=== PATIENT | female | born 1995 | race African-American/Black ===

== ENCOUNTER 2018-03-20 10:01 | Emergency (ER) | payer MEDICAID ==
[~2018-03-20] VITALS: Ht 160 cm; Wt 41.0 kg
[2018-03-20 10:09] VITALS: BP 125/78
[2018-03-20 11:06] LABS: ANION GAP 7 mmol/L (5-15); CHLORIDE 103 mmol/L (98-107); CREATININE 0.96 mg/dL (0.55-1.02)
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
--- NOTE | 2018-03-20 12:09 | NUR ---
Patient/Caregiver given discharge instructions and they have confirmed that they understand the instructions. Patient ambulatory to wheelchair. Dressing supplies given to family.
== END 2018-03-20 12:11 | disposition home or self-care (01) ==
LOC: ED 11:50
DX: K59.00 Constipation, unspecified (principal)
CPT/HCPCS: 36415; 80048; 99283

== ENCOUNTER 2018-03-23 17:10 | Emergency (ER) | payer MEDICAID ==
[~2018-03-23] VITALS: Ht 160 cm; Wt 45.5 kg
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
[2018-03-23] MEDS ORDERED: HYDROcodone/APAP 5/325 TABLET ONE (18:19)
[2018-03-23] MEDS ORDERED: OXYcodone/APAP 5/325MG TABLET ONE (18:24)
[2018-03-23] MEDS ORDERED: OXYcodone/APAP 5/325MG TABLET PO ONE (18:30)
[2018-03-23] MEDS ORDERED: HYDROcodone/APAP 5/325 TABLET PO ONE (18:30)
--- NOTE | 2018-03-23 18:31 | NUR ---
PT MEDICATED PER ORDER.
--- NOTE | 2018-03-23 18:50 | NUR ---
REPORT GIVEN TO JOSH DAVIS.
[2018-03-23 19:01] VITALS: BP 126/82
== END 2018-03-23 19:10 | disposition home or self-care (01) ==
LOC: ED 18:43
DX: M54.2 Cervicalgia (principal)
CPT/HCPCS: 99283